=== PATIENT | male | born 1990 | race Caucasian/White ===

== ENCOUNTER 2018-10-30 16:21 | Emergency (ER) | payer MEDICAID ==
[~2018-10-30] VITALS: Ht 172.7 cm; Wt 90.0 kg
[~2018-10-30 16:21] MED LIST: ADV50100 IH; ALB0.5UD IH; BUDE0.5A11 IH; HYDR1TAB PO; NO HOME MEDS
[2018-10-30 16:29] VITALS: BP 121/83
== END 2018-10-30 17:19 | disposition home or self-care (01) ==
LOC: ER 16:21
DX: H93.8X2 Other specified disorders of left ear (principal); Z90.49 Acquired absence of other specified parts of digestive tract; Z98.890 Other specified postprocedural states; Z91.018 Allergy to other foods
CPT/HCPCS: 99282

== ENCOUNTER 2020-06-15 05:04 | Emergency (ER) | payer OTHER ==
[~2020-06-15] VITALS: Ht 172.7 cm; Wt 72.0 kg
--- NOTE | 2020-06-15 05:22 | NUR ---
VENANCIO FLOREZ AT BEDSIDE
[2020-06-15] MEDS ORDERED: tetanus & diphtheria toxoid (Td) vaccine 0.5ml IMVAC ONE (05:40)
--- NOTE | 2020-06-15 05:42 | NUR ---
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
[2020-06-15] MEDS ORDERED: LIDOcaine 1% W/epiNEPHrine 1:200,000 10ml vial IJ ONE (05:45)
[2020-06-15] MEDS ORDERED: TETanus/Pertussis (Acell)/Diphther VAC/PF (Tdap-Adult) 0.5ml syringe IMVAC ONE (05:45)
[2020-06-15 07:29] VITALS: BP 122/72
== END 2020-06-15 07:31 | disposition home or self-care (01) ==
LOC: ER 05:04
DX: S61.411A Laceration without foreign body of right hand, initial encounter (principal); S61.511A Laceration without foreign body of right wrist, initial encounter; J45.909 Unspecified asthma, uncomplicated; F12.90 Cannabis use, unspecified, uncomplicated; Z90.49 Acquired absence of other specified parts of digestive tract; Z98.890 Other specified postprocedural states; Z79.899 Other long term (current) drug therapy; Z91.018 Allergy to other foods; W25.XXXA Contact with sharp glass, initial encounter; Y93.89 Activity, other specified; Y92.89 Other specified places as the place of occurrence of the external cause; Y99.8 Other external cause status
CPT/HCPCS: 12002; 73100; 90471; 90715; 99283

== ENCOUNTER 2020-08-19 00:12 | Emergency (ER) | payer OTHER ==
[~2020-08-19] VITALS: Ht 175.3 cm; Wt 86.4 kg
--- NOTE | 2020-08-19 00:48 | NUR ---
PT SHOUTING AND CRYING ABOUT HIS DAUGHTERS AT HOME AND WHY HE WAS BROUGHT IN.
[2020-08-19 00:56] VITALS: BP 142/98
== END 2020-08-19 00:58 ==
LOC: ER 00:13
DX: Z00.8 Encounter for other general examination (principal); F10.129 Alcohol abuse with intoxication, unspecified; R04.0 Epistaxis; J45.909 Unspecified asthma, uncomplicated; F12.90 Cannabis use, unspecified, uncomplicated; Z90.49 Acquired absence of other specified parts of digestive tract; Z98.890 Other specified postprocedural states; Z91.018 Allergy to other foods; Z79.899 Other long term (current) drug therapy; Y90.9 Presence of alcohol in blood, level not specified
CPT/HCPCS: 99283